=== PATIENT | male | born 1995 | race Caucasian/White ===

== ENCOUNTER → 2021-05-02 10:37 | Outpatient (BNVA) | payer OTHER, SELFPAY | PROVIDERS: Visit Provider Physician Assistant | DX: S63.502A Unspecified sprain of left wrist, initial encounter (principal); W03.XXXA Other fall on same level due to collision with another person, initial encounter | CPT/HCPCS: 73110; 99203 ==

== ENCOUNTER → 2021-05-19 09:30 | Outpatient (BNVA) | payer OTHER, SELFPAY | PROVIDERS: Visit Provider Physician Assistant Medical | DX: S53.442A Ulnar collateral ligament sprain of left elbow, initial encounter (principal); Y04.2XXA Assault by strike against or bumped into by another person, initial encounter | CPT/HCPCS: 99213 ==

== ENCOUNTER → 2021-11-20 14:45 | Outpatient (BNVA) | payer OTHER, SELFPAY | PROVIDERS: Visit Provider Physician Assistant | DX: S40.212A Abrasion of left shoulder, initial encounter (principal); W18.39XA Other fall on same level, initial encounter; Z23 Encounter for immunization | CPT/HCPCS: 90715; 99203 ==

== ENCOUNTER → 2024-04-13 14:53 | Outpatient (BNVA) | payer OTHER, SELFPAY | PROVIDERS: Visit Provider Physician Assistant Medical | DX: S01.112A Laceration without foreign body of left eyelid and periocular area, initial encounter (principal); W22.8XXA Striking against or struck by other objects, initial encounter | CPT/HCPCS: 12001; 99203 ==

== ENCOUNTER → 2024-04-17 11:45 | Outpatient (BNVA) | payer OTHER, SELFPAY | PROVIDERS: Visit Provider Physician Assistant Medical | DX: S01.112A Laceration without foreign body of left eyelid and periocular area, initial encounter (principal); W22.8XXA Striking against or struck by other objects, initial encounter; Z02.79 Encounter for issue of other medical certificate | CPT/HCPCS: 99213 ==